=== PATIENT | male | born 1935 | race African-American/Black ===

== ENCOUNTER 2016-12-06 09:59 | Emergency (ER) | payer BC ==
[~2016-12-06] VITALS: Ht 185.4 cm; Wt 70.3 kg
[2016-12-06 10:05] VITALS: BP 128/77
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
[2016-12-06] MEDS ORDERED: IBUPROFEN600 MG ORAL (10:37)
[2016-12-06] MEDS ORDERED: TYLENOL325 MG ORAL (10:37)
[2016-12-06 10:48] VITALS: BP 128/77
== END 2016-12-06 10:51 | disposition home or self-care (01) ==
LOC: EDBD 09:59 → EMR 10:10
DX: M54.5 Low back pain (principal); G89.29 Other chronic pain; I10 Essential (primary) hypertension
CPT/HCPCS: 99284